=== PATIENT | female | born 1940 | race Caucasian/White ===

== ENCOUNTER 2016-11-10 03:32 | Inpatient (IN) | payer MEDICARE ==
[~2016-11-10] VITALS: Ht 154.9 cm; Wt 81.2 kg
[2016-11-10] MEDS ORDERED: AZITHROMYCIN 500 MG VIAL IV ONE (04:23)
[2016-11-10] MEDS ORDERED: SODIUM CHLORIDE 0.9% 250 ML IV ONE (04:24)
[2016-11-10] MEDS ORDERED: CEFTRIAXONE 1 GM VIAL ONE (04:24)
[2016-11-10] MEDS ORDERED: SODIUM CHLORIDE 0.9% 100 ML IV ONE (04:25)
[2016-11-10] MEDS ORDERED: ALU/MAG/SIM 30 ML UDC PO PRN (06:15)
[2016-11-10] MEDS ORDERED: BISACODYL EC 5 MG TAB PO PRN (06:15)
[2016-11-10] MEDS ORDERED: SALINE FLUSH 10 ML FLUSH PRN (06:15)
[2016-11-10] MEDS ORDERED: DEXTROSE 50% SYRINGE 50 ML IV PRN ×2 (06:15→12:10)
[2016-11-10] MEDS ORDERED: MAG HYDROX 30 ML UDC PO PRN (06:15)
[2016-11-10] MEDS ORDERED: ACETAMINOPHEN 325 MG TAB PO PRN (06:15)
[2016-11-10] MEDS ORDERED: MORPHINE 2 MG/ML SYR IV PRN (06:15)
[2016-11-10] MEDS ORDERED: GLUCAGON 1 MG VIAL IM PRN ×2 (06:15→12:10)
[2016-11-10] MEDS ORDERED: BISACODYL 10 MG SUPP RECTAL PRN (06:15)
[2016-11-10] MEDS ORDERED: SODIUM CHLORIDE 0.9% 1,000 ML IV SCH ×2 (06:15→12:10)
[2016-11-10 08:41] VITALS: BP_SYST 133; BP_SYST 152; RESP 18; TEMP 97.8; Ht 154.9 cm; Wt 81.2 kg
[2016-11-10] MEDS: LEVOFLOXACIN 750 MG/150 ML 150 ML IV SCH ×2 (09:00→09:05)
[2016-11-10] MEDS: SALINE FLUSH 10 ML FLUSH SCH ×2 (09:00→23:36)
[2016-11-10] MEDS ORDERED: SODIUM CHLORIDE 0.9% 1,000 ML ONE (09:03)
[2016-11-10 10:36] VITALS: BP_SYST 159; RESP 16; TEMP 98.1
[2016-11-10] MEDS ORDERED: OXYCODONE 5 MG TAB PO PRN ×2 (12:10)
[2016-11-10] MEDS: LEVEMIR INSULIN SUBQ SCH (12:10)
[2016-11-10] MEDS ORDERED: FAMOTIDINE 20 MG TAB PO SCH (12:16)
[2016-11-10] MEDS: PREDNISOLONE ACET 1% OP SUSP EYE RT SCH ×4 (13:02→23:36)
[2016-11-10] MEDS: SACCHA BOULARDII 250MG CAP PO SCH ×2 (13:03→13:30)
[2016-11-10] MEDS: KCL CR 20 MEQ TAB PO SCH (13:03)
[2016-11-10] MEDS: Furosemide 40 MG TAB PO SCH (13:04)
[2016-11-10] MEDS: FLUOXETINE 20 MG CAP PO SCH (13:04)
[2016-11-10] MEDS: LEVOTHYROXINE 0.075 MG TAB PO SCH (13:04)
[2016-11-10] MEDS: FOLIC ACID 1 MG TAB PO SCH (13:30)
[2016-11-10] MEDS: PANTOPRAZOLE 40 MG TAB PO SCH (13:30)
[2016-11-10] MEDS: ATENOLOL 50 MG TAB PO SCH (13:30)
[2016-11-10] MEDS: ACETAMINOPHEN 500 MG TAB PO SCH ×2 (13:30→23:26)
[2016-11-10] MEDS: PREDNISONE 20 MG TAB PO SCH (13:30)
[2016-11-10] MEDS: DUONEB INH SCH ×3 (15:02→23:09)
[2016-11-10 15:04] VITALS: RESP 18
[2016-11-10 15:27] VITALS: BP_SYST 146; RESP 18; TEMP 97.7
[2016-11-10 21:36] VITALS: BP_SYST 150; RESP 18; TEMP 98.1
[2016-11-10] MEDS: OLMESARTAN 20 MG TAB PO SCH (23:26)
[2016-11-11] VITALS (7 sets, daily range): BP systolic 121–163; RESP 16–20; TEMP 97.3–98.5
[2016-11-11] MEDS: SODIUM CHLORIDE 0.9% FLUSH BAG 500 ML IV SCH (04:21)
[2016-11-11] MEDS: DUONEB INH SCH ×5 (05:17→23:44)
[2016-11-11] MEDS: LEVOTHYROXINE 0.075 MG TAB PO SCH (06:03)
[2016-11-11] MEDS: PANTOPRAZOLE 40 MG TAB PO SCH (06:03)
[2016-11-11] MEDS: PREDNISOLONE ACET 1% OP SUSP EYE RT SCH ×4 (08:04→22:00)
[2016-11-11] MEDS: ACETAMINOPHEN 500 MG TAB PO SCH ×2 (08:05→16:44)
[2016-11-11] MEDS: SALINE FLUSH 10 ML FLUSH SCH ×2 (08:05→22:05)
[2016-11-11] MEDS: PREDNISONE 20 MG TAB PO SCH (08:06)
[2016-11-11] MEDS: ATENOLOL 50 MG TAB PO SCH (08:06)
[2016-11-11] MEDS: SACCHA BOULARDII 250MG CAP PO SCH ×3 (08:06→22:05)
[2016-11-11] MEDS: KCL CR 20 MEQ TAB PO SCH (08:06)
[2016-11-11] MEDS: FLUOXETINE 20 MG CAP PO SCH (08:06)
[2016-11-11] MEDS: FOLIC ACID 1 MG TAB PO SCH (08:06)
[2016-11-11] MEDS: Furosemide 40 MG TAB PO SCH (08:06)
[2016-11-11] MEDS: LEVEMIR INSULIN SUBQ SCH (09:00)
[2016-11-11] MEDS: ENOXAPARIN 40 MG/0.4 ML SYR SUBQ SCH (12:57)
[2016-11-11] MEDS: LEVOFLOXACIN 750 MG TAB PO SCH (12:59)
[2016-11-11] MEDS: OLMESARTAN 20 MG TAB PO SCH (22:05)
[2016-11-12] VITALS (7 sets, daily range): BP systolic 116–174; RESP 16–20; TEMP 97.4–98.3
[2016-11-12] MEDS: ACETAMINOPHEN 500 MG TAB PO SCH ×4 (00:21→23:25)
[2016-11-12] MEDS: PANTOPRAZOLE 40 MG TAB PO SCH (07:12)
[2016-11-12] MEDS: SODIUM CHLORIDE 0.9% FLUSH BAG 500 ML IV SCH (07:12)
[2016-11-12] MEDS: LEVOTHYROXINE 0.075 MG TAB PO SCH (07:12)
[2016-11-12] MEDS: DUONEB INH SCH ×5 (07:40→22:17)
[2016-11-12] MEDS: SALINE FLUSH 10 ML FLUSH SCH ×2 (08:12→20:42)
[2016-11-12] MEDS: PREDNISOLONE ACET 1% OP SUSP EYE RT SCH ×4 (08:12→20:37)
[2016-11-12] MEDS: Furosemide 40 MG TAB PO SCH (08:13)
[2016-11-12] MEDS: FOLIC ACID 1 MG TAB PO SCH (08:13)
[2016-11-12] MEDS: FLUOXETINE 20 MG CAP PO SCH (08:13)
[2016-11-12] MEDS: KCL CR 20 MEQ TAB PO SCH (08:13)
[2016-11-12] MEDS: SACCHA BOULARDII 250MG CAP PO SCH ×3 (08:13→20:36)
[2016-11-12] MEDS: PREDNISONE 20 MG TAB PO SCH (08:14)
[2016-11-12] MEDS: ATENOLOL 50 MG TAB PO SCH (08:14)
[2016-11-12] MEDS: LEVOFLOXACIN 750 MG TAB PO SCH (08:16)
[2016-11-12] MEDS: ENOXAPARIN 40 MG/0.4 ML SYR SUBQ SCH (08:18)
[2016-11-12] MEDS: LEVEMIR INSULIN SUBQ SCH (09:09)
[2016-11-12] MEDS: OLMESARTAN 20 MG TAB PO SCH (20:37)
[2016-11-13 03:12] VITALS: BP_SYST 171; RESP 28; TEMP 97.5
[2016-11-13] MEDS: SODIUM CHLORIDE 0.9% FLUSH BAG 500 ML IV SCH (06:00)
[2016-11-13] MEDS: LEVOTHYROXINE 0.075 MG TAB PO SCH (06:07)
[2016-11-13] MEDS: PANTOPRAZOLE 40 MG TAB PO SCH (06:07)
[2016-11-13] MEDS: DUONEB INH SCH ×3 (06:19→14:11)
[2016-11-13 07:50] VITALS: BP_SYST 155; RESP 20; TEMP 97.3
[2016-11-13] MEDS: PREDNISOLONE ACET 1% OP SUSP EYE RT SCH ×3 (08:11→16:00)
[2016-11-13] MEDS: LEVOFLOXACIN 750 MG TAB PO SCH (08:12)
[2016-11-13] MEDS: KCL CR 20 MEQ TAB PO SCH (08:12)
[2016-11-13] MEDS: FOLIC ACID 1 MG TAB PO SCH (08:12)
[2016-11-13] MEDS: SACCHA BOULARDII 250MG CAP PO SCH ×2 (08:12→15:58)
[2016-11-13] MEDS: Furosemide 40 MG TAB PO SCH (08:12)
[2016-11-13] MEDS: FLUOXETINE 20 MG CAP PO SCH (08:12)
[2016-11-13] MEDS: ATENOLOL 50 MG TAB PO SCH (08:12)
[2016-11-13] MEDS: ENOXAPARIN 40 MG/0.4 ML SYR SUBQ SCH (08:13)
[2016-11-13] MEDS: ACETAMINOPHEN 500 MG TAB PO SCH ×2 (08:13→15:59)
[2016-11-13] MEDS: LEVEMIR INSULIN SUBQ SCH (08:56)
[2016-11-13] MEDS: SALINE FLUSH 10 ML FLUSH SCH (08:56)
[2016-11-13] MEDS ORDERED: PREDNISONE 10 MG TAB PO SCH (09:00)
[2016-11-13 10:43] VITALS: BP_SYST 155; RESP 20; TEMP 97.3
[2016-11-13 12:21] VITALS: BP_SYST 155; RESP 20; TEMP 97.6
== END 2016-11-13 16:18 | disposition home health service (06) | DRG 195 ==
LOC: ENRESERVDT → ENRESERVTM → ER 03:32 → ENPENDDIS 05:56 → EMR 05:56 → 3S 08:46
PROVIDERS: ADMIT Family Medicine; ATTEND Family Medicine
CPT/HCPCS: 36415; 71010; 71020; 72100; 80048; 80053; 82947; 83880; 85025; 94640; 94799; 96365; 96366; 96367; 99232; 99233; 99239